=== PATIENT | male | born 1945 | race Caucasian/White ===

== ENCOUNTER → 2017-10-26 | Outpatient (CLI) | payer OTHER | END | disposition home or self-care (01) | LOC: PCVCIMAG 16:46 | DX: I65.23 Occlusion and stenosis of bilateral carotid arteries (principal); I25.10 Atherosclerotic heart disease of native coronary artery without angina pectoris | CPT/HCPCS: 93880 ==

== ENCOUNTER → 2018-06-27 | Outpatient (CLI) | payer OTHER ==
--- NOTE | 2018-06-27 13:44 | PCVCIMAG ---
EXAM: BILATERAL CAROTID DUPLEX INDICATION: Carotid Occlusive Disease. FINDINGS: Doppler Measurements (centimeters per second): RIGHT: Peak CCA-97, Peak ECA-431, Diastolic ICA-23, Peak ICA-157, ICA/CCA Ratio-1.6. LEFT: Peak CCA-137, Peak ECA-216, Diastolic ICA-30, Peak ICA-191, ICA/CCA Ratio-1.4. RIGHT CAROTID: The carotid bulb has severe plaque. The proximal internal carotid artery shows 50-60% stenosis. The common carotid artery shows no significant stenosis. The external carotid artery shows 90% stenosis. LEFT CAROTID: The carotid bulb has severe plaque. The proximal internal carotid artery shows 60% stenosis. The common carotid artery shows no significant stenosis. The external carotid artery shows 60% stenosis. Antegrade flow in both vertebral arteries. IMPRESSION: 50-60% stenosis of the right internal carotid artery with severe plaque. 60% stenosis of the left internal carotid artery with severe plaque. No change since October 2017 study. LOC:[id number]
== END | disposition home or self-care (01) ==
LOC: PCVCIMAG 10:46
PROVIDERS: ATTEND Internal Medicine Cardiovascular Disease
DX: I65.23 Occlusion and stenosis of bilateral carotid arteries (principal)
CPT/HCPCS: 93880

== ENCOUNTER → 2018-08-01 | Outpatient (CLI) | payer OTHER ==
[~2018-08-01] MED LIST: REGADENOSON 0.4 MG/5 ML DISP.SYRIN. IV ONE
--- NOTE | 2018-08-01 16:57 | PCVCIMAG ---
APPROVED REPORT Study performed: 08/01/2018 12:51:37 EXAM: Comprehensive 2D, Doppler, and color-flow Echocardiogram Patient Location: Echo lab Status: routine BSA: 2.41 HR: 82 bpm Rhythm: NSR Other Information Study Quality: Technically Difficult Left Ventricle The left ventricle is normal size. There is normal LV segmental wall motion. There is normal left ventricular wall thickness. Left ventricular systolic function is normal. The left ventricular ejection fraction is within the normal range. 55% The left ventricular diastolic function is normal. Right Ventricle The right ventricle is normal size. The right ventricular systolic function is normal. Atria The left atrium size is normal. The right atrium size is normal. Aortic Valve The aortic valve is normal in structure. No aortic regurgitation is present. There is no aortic valvular stenosis. Mitral Valve The mitral valve is normal in structure. Trace mitral regurgitation. No evidence of mitral valve stenosis. Tricuspid Valve The tricuspid valve is normal in structure. There is no tricuspid valve regurgitation noted. Pulmonic Valve The pulmonary valve is normal in structure. There is no pulmonic valvular regurgitation. Great Vessels The aortic root is normal in size. IVC is normal in size and collapses >50% with inspiration. Pericardium There is no pericardial effusion. <Conclusion> The left ventricle is normal size. 55% The left ventricular diastolic function is normal. The right ventricle is normal size. The left atrium size is normal. The aortic valve is normal in structure. Trace mitral regurgitation. The tricuspid valve is normal in structure. The aortic root is normal in size. There is no pericardial effusion.
--- NOTE | 2018-08-01 17:50 | PCVCIMAG ---
APPROVED REPORT Imaging Protocol: Rest Tc-99m/Stress Tc-99m 1 day Study performed: 08/01/2018 14:05:21 Indication: CAD , Dyspnea Patient Location: Out-Patient Stress Nurse: Pam Hall RN, Maureen Patel RN PR Tech:Jerica Que [facility] Ht: 5 ft 11 in Wt: 270 lbs BSA: 2.40 m2 HR: 81 bpm BP: 175/72 mmHg BMI: 37.6 Rhythm: Sinus Rhythm, Intraventricular conduction delay Medical History Medical History: HTN, Hyperlipidemia, Diabetes, Former Smoker Medications: Amlodipine, ASA, Crestor, Edarbyclor, Amaryl, Antivert, Bystolic, Effient, Hytrin Allergies: Tape Cardiac Risk Factors: Age Previous Cardiac Procedures: PCI Pretest Chest Pain Characteristics: No chest pain Exercise History: Sedentary Resting Data Rest SPECT myocardial perfusion imaging was performed in supine position 45 minutes following the intravenous injection of 15.7 mCi of Tc-99m Sestamibi. Time of rest injection: 1330 Administration Route: IV Administration Site: Right Hand Pharmacologic Stress Pharmacologic stress test was performed by injecting Regadenoson 0.4 mg IV push over 10-15 seconds immediately followed by the intravenous injection of 43.4 mCi of Tc-99m Sestamibi. Time of stress injection: 1445 Date: 08/01/2018 Administration Route: IV Administration Site: Right Hand Gated Stress SPECT was performed 45 minutes after stress injection. The images were gated to evaluate regional wall motion and calculate left ventricular ejection fraction. Comments Prior Nuclear Stress Test 2017: Nonischemic Stress Test Details Stress Test: Pharmacologic stress testing performed using 0.4 mg of regadenoson per 5 mL given IV over 10 seconds. Reason for pharmacologic stress test: physical limitation. HRMax Heart Rate (APMHR): 148 bpm Resting HR: 81 bpmTarget HR (85% APMHR): 125 bpm Max HR Achieved: 96 bpm % of APMHR: 64 Recovery HR: 91 bpm BP Resting BP: 175/72 mmHg Max BP: 157/72 mmHg Recovery BP: 150/68 mmHg ECG Resting ECG: Sinus Rhythm, Intraventricular conduction delay Stress ECG: Sinus Rhythm, Intraventricular conduction delay Arrhythmia: Rare PVC's Recovery ECG: Sinus Rhythm, Intraventricular conduction delay Clinical Reason for Termination: Completed protocol Stress Symptoms: Chest tightness Exercise duration: 0 min 55 sec Symptoms resolved during recovery. Stress ECG Conclusion ECG: Non-ischemic Clinical: Non-ischemic Study Quality Study: Good Study Data Post stress, the left ventricular ejection was 60%.. SSS: 6 SRS: 10 SDS: 0 TID = 1.08. Perfusion No evidence of stress induced ischemia. 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 Nuclear Conclusion No evidence of stress induced ischemia. 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 Post stress, the left ventricular ejection was 60%. Compared to the prior study dated September 2016, inferior infarct is better seen.. Interpreted by: Umesh Ewing MD Electronically Approved: 08/01/2018 17:46:12 <Conclusion> ECG: Non-ischemic Clinical: Non-ischemic
== END | disposition home or self-care (01) ==
LOC: PCVCIMAG 12:33
PROVIDERS: ATTEND Internal Medicine Cardiovascular Disease
DX: I25.10 Atherosclerotic heart disease of native coronary artery without angina pectoris (principal); R06.00 Dyspnea, unspecified; I10 Essential (primary) hypertension; E78.5 Hyperlipidemia, unspecified; E11.9 Type 2 diabetes mellitus without complications; Z87.891 Personal history of nicotine dependence
CPT/HCPCS: 78452; 93017; 93306; A9500; J2785